=== PATIENT | male | born 1935 | race Two or more races ===

== ENCOUNTER 2017-10-05 17:12 | Inpatient (IN) | payer MEDICARE, OTHER ==
[~2017-10-05] VITALS: Ht 170.2 cm; Wt 53.5 kg
[~2017-10-05 17:12] MED LIST: ARICEPT10 MG ORAL; COLACE250 MG ORAL; CRANBERRY450 M3 PO; FOLIC ACID1 MG ORAL; MOM30 ML ORAL; NAMENDA10 MG ORAL; NIACIN100 GM PO; NIACIN50 MG ORAL; NORVASC10 MG ORAL; OSCAL D500 MG PO; QUETIAPINE FUMA25 MG ORAL; RENA-VITE TABL0.8 M1 PO; SINEMET CR 50/201 EA ORAL; TYLENOL100 MG/11 PO; VIT PO; VITAMIN B-1100 MG ORAL; ZYPREXA5 MG ORAL; ZYPREXA7.5 MG ORAL
[2017-10-05] MEDS ORDERED: NAMENDA5 MG ORAL (17:20)
[2017-10-05 18:21] LABS: APPEARANCE,URINE CLEAR; BASOPHILS % (AUTO) 0.6 % (0.0-2.0); BILIRUBIN, URINE NEGATIVE (NEGATIVE); COLOR,URINE PALE YELLOW; EOSINOPHILS % (AUTO) 1.7 % (0.0-3.0); GLUCOSE, URINE (UA) NEGATIVE (NEGATIVE); HEMATOCRIT 37.7 % (42.0-52.0); HEMOGLOBIN 12.3 G/DL (14.2-18.0); KETONES,URINE NEGATIVE (NEGATIVE); LEUKOCYTE ESTERASE ,URINE NEGATIVE (NEGATIVE); LYMPHOCYTES % (AUTO) 11.9 % (20.0-45.0); MEAN CORPUSCULAR VOLUME 90 FL (80-99); NEUTROPHILS % (AUTO) 80.7 % (45.0-75.0); NITRITE,URINE NEGATIVE (NEGATIVE); PH,URINE 5 (4.5-8.0); PLATELET COUNT 373 K/UL (150-450); PROTEIN,URINE NEGATIVE (NEGATIVE); UROBILINOGEN,URINE NORMAL MG/DL (0.0-1.0)
[2017-10-05 18:24] VITALS: BP 135/72
[2017-10-05 18:36] LABS: ANION GAP 9 mmol/L (5-15); BLOOD UREA NITROGEN 21 mg/dL (7-18); CALCIUM 9.1 MG/DL (8.5-10.1); CARBON DIOXIDE 24 MMOL/L (21-32); CHLORIDE 113 MMOL/L (98-107); CREATININE 2.2 MG/DL (0.55-1.30); POTASSIUM 3.4 MMOL/L (3.5-5.1); SODIUM 146 MMOL/L (136-145)
[2017-10-05 18:48] LABS: ALANINE AMINOTRANSFERASE 11 U/L (12-78); ALBUMIN 2.5 G/DL (3.4-5.0); ALBUMIN/GLOBULIN RATIO 0.6 (1.0-2.7); ALKALINE PHOSPHATASE 83 U/L (46-116); ASPARTATE AMINO TRANSFERASE 13 U/L (15-37); BILIRUBIN,TOTAL 0.3 MG/DL (0.2-1.0)
[2017-10-05 19:35] VITALS: BP 128/69
[2017-10-05 21:40] VITALS: BP 112/58
--- NOTE | 2017-10-06 | Emergency Room Report ---
History of Present Illness General Chief Complaint: General Complaint Source: Medical Record, EMS Present Illness HPI This patient is unsure senior living facility. The patient presents for progressive weight loss and poor oral intake. He has a history of Parkinson's, dementia and failure to thrive. His primary care physician sent him in for admission for possible PEG tube placement. The patient has severe dementia and is unable to give a history. Allergies: Coded Allergies: CHLORPROMAZINE (Unverified Allergy, Unknown, 11/19/13) CHLORPROMAZINE HCL (Verified Allergy, Unknown, 02/12/13) FLUPHENAZINE (Verified Allergy, Unknown, 02/12/13) Patient History Past Medical History: see triage record, other - Parkinsons, FTT, Dementia Social History: Denies: smoking, alcohol use, drug use Reviewed Nursing Documentation: PMH: Agreed, PSxH: Agreed Nursing Documentation-PMH Hx Cardiac Problems: Yes Hx Hypertension: Yes - hyperlipedema Hx COPD: Yes Hx Diabetes: Yes Hx Cancer: Yes - BASAL CELL CA Hx Dialysis: No History Of Psychiatric Problem: Yes - schizo Hx Cerebrovascular Accident: Yes Hx Dementia: Yes Hx Alzheimer's Disease: Yes Hx Parkinson's Disease: Yes Hx Weakness: Yes Review of Systems All Other Systems: negative except mentioned in HPI Physical Exam Vital Signs Date Time Temp Pulse Resp B/P (MAP) Pulse Ox O2 Delivery O2 Flow Rate FiO2 10/05/17 17:07 99.0 82 16 135/72 93 Room Air 99.0 Sp02 EP Interpretation: reviewed, normal General Appearance: no apparent distress, alert, GCS 15, non-toxic Head: normocephalic, atraumatic Eyes: bilateral eye normal inspection, bilateral eye PERRL ENT: hearing grossly normal, normal pharynx, no angioedema, normal voice Neck: full range of motion, supple/symm/no masses Respiratory: chest non-tender, lungs clear, normal breath sounds, no respiratory distress, no retraction, no accessory muscle use, speaking full sentences Cardiovascular #1: regular rate, rhythm, no edema Gastrointestinal: normal bowel sounds, non tender, soft, non-distended, no guarding, no rebound Rectal: deferred Musculoskeletal: back normal, non-tender Neurologic: alert, responsive, motor strength/tone normal, sensory intact Psychiatric: other - agitated Skin: well hydrated Medical Decision Making Diagnostic Impression: Primary Impression: Failure to thrive in adult Additional Impression: Excessive weight loss ER Course This patient presents with failure to thrive progressive weight loss. He has had poor by mouth intake. His history of Parkinson's and dementia. He is admitted for possible PEG tube placement and further evaluation and treatment. Laboratory Tests Test 10/05/17 18:10 White Blood Count 14.0 K/UL (4.8-10.8) H Red Blood Count 4.20 M/UL (4.70-6.10) L Hemoglobin 12.3 G/DL (14.2-18.0) L Hematocrit 37.7 % (42.0-52.0) L Mean Corpuscular Volume 90 FL (80-99) Mean Corpuscular Hemoglobin 29.3 PG (27.0-31.0) Mean Corpuscular Hemoglobin Concent 32.6 G/DL (32.0-36.0) Red Cell Distribution Width 14.0 % (11.6-14.8) Platelet Count 373 K/UL (150-450) Mean Platelet Volume 5.5 FL (6.5-10.1) L Neutrophils (%) (Auto) 80.7 % (45.0-75.0) H Lymphocytes (%) (Auto) 11.9 % (20.0-45.0) L Monocytes (%) (Auto) 5.0 % (1.0-10.0) Eosinophils (%) (Auto) 1.7 % (0.0-3.0) Basophils (%) (Auto) 0.6 % (0.0-2.0) Urine Color Pale yellow Urine Appearance Clear Urine pH 5 (4.5-8.0) Urine Specific [place] 1.015 (1.005-1.035) Urine Protein Negative (NEGATIVE) Urine Glucose (UA) Negative (NEGATIVE) Urine Ketones Negative (NEGATIVE) Urine Occult Blood Negative (NEGATIVE) Urine Nitrite Negative (NEGATIVE) Urine Bilirubin Negative (NEGATIVE) Urine Urobilinogen Normal MG/DL (0.0-1.0) Urine Leukocyte Esterase Negative (NEGATIVE) Sodium Level 146 MMOL/L (136-145) H Potassium Level 3.4 MMOL/L (3.5-5.1) L Chloride Level 113 MMOL/L (98-107) H Carbon Dioxide Level 24 MMOL/L (21-32) Anion Gap 9 mmol/L (5-15) Blood Urea Nitrogen 21 mg/dL (7-18) H Creatinine 2.2 MG/DL (0.55-1.30) H Estimate Glomerular Filtration Rate mL/min (>60) Glucose Level 104 MG/DL (74-106) Calcium Level 9.1 MG/DL (8.5-10.1) Total Bilirubin 0.3 MG/DL (0.2-1.0) Aspartate Amino Transferase (AST) 13 U/L (15-37) L Alanine Aminotransferase (ALT) 11 U/L (12-78) L Alkaline Phosphatase 83 U/L (46-116) Troponin I 0.001 ng/mL (0.000-0.056) Total Protein 6.8 G/DL (6.4-8.2) Albumin 2.5 G/DL (3.4-5.0) L Globulin 4.3 g/dL Albumin/Globulin Ratio 0.6 (1.0-2.7) L Thyroid Stimulating Hormone (TSH) 1.937 uiU/mL (0.358-3.740) Free Thyroxine 1.01 NG/DL (0.76-1.46) EKG Diagnostic Results Rate: normal Rhythm: NSR ST Segments: no acute changes Rhythm Strip Diag. Results EP Interpretation: yes Rate: 90's Rhythm: NSR, no PVC's, no ectopy Last Vital Signs Date Time Temp Pulse Resp B/P (MAP) Pulse Ox O2 Delivery O2 Flow Rate FiO2 10/05/17 18:24 99.0 82 16 135/72 95 Room Air 99.0 Disposition: ADMITTED INPATIENT Condition: Stable Referrals: NON PHYSICIAN (PCP) ELEUTERIO CENTENO D.O. Oct 06, 2017 00:00
[2017-10-06 00:43] VITALS: BP 102/55
[2017-10-06] MEDS: D5 1/2NS 1,000 ML IV SCH ×2 (03:00→15:27)
[2017-10-06 08:00] VITALS: BP 127/69
[2017-10-06] MEDS: Tums 500mg ORAL SCH ×2 (08:44→18:25)
[2017-10-06] MEDS: Thiamine 100mg tab ORAL SCH (08:44)
[2017-10-06] MEDS: Heparin 5000 units/ml inj SUBQ SCH ×2 (08:49→21:37)
[2017-10-06] MEDS ORDERED: Niacin 50mg tab ORAL SCH (09:00)
[2017-10-06 12:00] VITALS: BP 142/80
[2017-10-06] MEDS: Memantine 5 MG TAB ORAL SCH ×2 (14:45→21:33)
[2017-10-06] MEDS: Niacin 50mg tab ORAL SCH (14:45)
--- NOTE | 2017-10-06 15:00 | History and Physical Report ---
DATE OF ADMISSION: 10/05/2017 CHIEF COMPLAINT: Failure to thrive, weight loss, and acute renal failure HISTORY OF PRESENT ILLNESS: The patient is an 82-year-old male. He has a history of bipolar disorder, dementia, coronary artery disease, GERD, diabetes, schizophrenia, hypertensive heart disease, and COPD. He was transferred from a group home facility with complaints of progressive weight loss and failure to thrive. According to staff at the group home facility, the patient has lost approximately 8 pounds over the last week. His p.o. intake has been labile but has been mostly poor. He has also apparently been pocketing food, having some difficulty with swallowing. On evaluation in the emergency room, the patient was noted to have a white count 14,000. His urinalysis is unremarkable. He had an elevated sodium, decreased potassium level, and creatinine of 2. In the light of the patient's failure to thrive, he is now admitted for further evaluation and care. PAST MEDICAL HISTORY: As above. PAST SURGICAL HISTORY: None. CURRENT MEDICATIONS: Reconciled and reviewed. ALLERGIES: Include chlorpromazine and fluphenazine. FAMILY HISTORY: Noncontributory. SOCIAL HISTORY: There is no known history of tobacco, ethanol, or drugs. REVIEW OF SYSTEMS: From the patient is unobtainable as the patient is currently agitated and combative. PHYSICAL EXAMINATION: VITAL SIGNS: Temperature 98.6, pulse 74, respirations 18, and blood pressure 127/69. GENERAL: The patient is well-developed male, in no apparent distress. He is somewhat agitated. NECK: Supple. HEART: Regular rate and rhythm. LUNGS: Clear. ABDOMEN: Soft. EXTREMITIES: Without clubbing or cyanosis. The patient moves all four extremities. LABORATORY DATA: Showed sodium 146, potassium 3.4. White count was 14,000. ASSESSMENT: This is a pleasant male admitted with complaints of failure to thrive and weight loss: 1. Failure to thrive and weight loss. 2. Possible acute renal failure. 3. Dehydration. 4. Hypernatremia. 5. Hypokalemia. 6. History of obesity. 7. Anemia. 8. History of coronary artery disease. 9. History of stable angina. 10. GERD. 11. Schizophrenia. 12. Hypertension. 13. COPD. 14. Diabetes. 15. Parkinson's disease. 16. History of bradycardia. PLAN: IV hydration. Check swallow evaluation. CT scan of the chest, abdomen, and pelvis without contrast. We will check tumor markers. We will monitor the patient's p.o. intake closely. Chaim Mcdaniels M.D. DR: RAGHU JOB#: [id number] CC:
[2017-10-06 16:00] VITALS: BP 114/64
[2017-10-06 20:00] VITALS: BP 120/69
[2017-10-06] MEDS: Donepezil 10mg tab ORAL SCH (21:33)
[2017-10-07 04:00] VITALS: BP 139/80
[2017-10-07] MEDS: D5 1/2NS 1,000 ML IV SCH ×2 (04:47→17:47)
--- NOTE | 2017-10-07 08:20 | General Progress Note ---
Assessment/Plan Problem List: (1) Dehydration ICD Codes: E86.0 - Dehydration SNOMED: 23013853 (2) Toxic metabolic encephalopathy ICD Codes: G92 - Toxic encephalopathy SNOMED: 858593988 (3) Failure to thrive in adult ICD Codes: R62.7 - Adult failure to thrive SNOMED: 396168848 (4) Excessive weight loss ICD Codes: R63.4 - Abnormal weight loss SNOMED: 442428670 Status: stable, progressing Assessment/Plan ct chest abd pelvix check tumor markers tfts, a1c monitor po intake ivf Subjective ROS Limited/Unobtainable: No Constitutional: Reports: malaise, weakness HEENT: Reports: no symptoms Cardiovascular: Reports: no symptoms Respiratory: Reports: no symptoms Gastrointestinal/Abdominal: Reports: no symptoms Genitourinary: Reports: no symptoms Neurologic/Psychiatric: Reports: anxiety, pre-existing deficit Endocrine: Reports: no symptoms Hematologic/Lymphatic: Reports: no symptoms Allergies: Coded Allergies: CHLORPROMAZINE (Unverified Allergy, Unknown, 11/19/13) CHLORPROMAZINE HCL (Verified Allergy, Unknown, 02/12/13) FLUPHENAZINE (Verified Allergy, Unknown, 02/12/13) All Systems: reviewed and negative except above Subjective eating well. 100% documented. less agitated. Objective Last 24 Hour Vital Signs Date Time Temp Pulse Resp B/P (MAP) Pulse Ox O2 Delivery O2 Flow Rate FiO2 10/07/17 04:00 97.0 87 19 139/80 98 97.0 10/06/17 20:00 97.9 95 18 120/69 96 97.9 10/06/17 16:00 98.7 68 18 114/64 100 Room Air 98.7 10/06/17 12:00 98.7 76 18 142/80 98 Room Air 98.7 10/06/17 08:44 74 127/69 Intake and Output 10/06/17 10/07/17 19:00 07:00 Intake Total 1350 ml 1185 ml Balance 1350 ml 1185 ml Intake Oral 600 ml 360 ml IV Total 750 ml 825 ml # Voids 2 4 Height (Feet): 5 Height (Inches): 7.00 Weight (Pounds): 118 General Appearance: WD/WN, alert Neck: supple Cardiovascular: regular rhythm Respiratory/Chest: chest wall non-tender, lungs clear, normal breath sounds, no respiratory distress Abdomen: normal bowel sounds, non tender, soft, no organomegaly Edema: no edema noted Arm (L), no edema noted Arm (R), no edema noted Leg (L), no edema noted Leg (R), no edema noted Pedal (L), no edema noted Pedal (R), no edema noted 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
[2017-10-07 09:00] VITALS: BP 130/76
[2017-10-07] MEDS: Thiamine 100mg tab ORAL SCH (09:24)
[2017-10-07] MEDS: Tums 500mg ORAL SCH ×2 (09:24→17:46)
[2017-10-07] MEDS: Memantine 5 MG TAB ORAL SCH ×2 (09:24→17:46)
[2017-10-07] MEDS: Heparin 5000 units/ml inj SUBQ SCH ×2 (09:25→20:32)
[2017-10-07 10:22] LABS: ALANINE AMINOTRANSFERASE 9 U/L (12-78); ALBUMIN/GLOBULIN RATIO 0.5 (1.0-2.7); ALKALINE PHOSPHATASE 70 U/L (46-116); ANION GAP 6 mmol/L (5-15); ASPARTATE AMINO TRANSFERASE 10 U/L (15-37); BILIRUBIN,TOTAL 0.3 MG/DL (0.2-1.0); BLOOD UREA NITROGEN 18 mg/dL (7-18); CALCIUM 8.7 MG/DL (8.5-10.1); CARBON DIOXIDE 25 MMOL/L (21-32); CHLORIDE 112 MMOL/L (98-107); POTASSIUM 3.8 MMOL/L (3.5-5.1); SODIUM 143 MMOL/L (136-145)
[2017-10-07] MEDS: Niacin 50mg tab ORAL SCH (11:44)
[2017-10-07 11:47] VITALS: BP 139/61
[2017-10-07 20:00] VITALS: BP 129/73
[2017-10-07] MEDS: Donepezil 10mg tab ORAL SCH (20:32)
[2017-10-07 23:57] VITALS: BP 125/81
[2017-10-08 04:00] VITALS: BP 122/68
[2017-10-08] MEDS: D5 1/2NS 1,000 ML IV SCH ×2 (06:14→19:19)
[2017-10-08 08:00] VITALS: BP 118/69
[2017-10-08] MEDS: Tums 500mg ORAL SCH ×2 (08:24→17:47)
[2017-10-08] MEDS: Memantine 5 MG TAB ORAL SCH ×2 (08:24→17:47)
[2017-10-08] MEDS: Niacin 50mg tab ORAL SCH (08:24)
[2017-10-08] MEDS: Heparin 5000 units/ml inj SUBQ SCH ×3 (08:25→21:25)
[2017-10-08] MEDS: Thiamine 100mg tab ORAL SCH (08:27)
--- NOTE | 2017-10-08 08:37 | General Progress Note ---
Assessment/Plan Problem List: (1) Dehydration ICD Codes: E86.0 - Dehydration SNOMED: 40052311 (2) Toxic metabolic encephalopathy ICD Codes: G92 - Toxic encephalopathy SNOMED: 257605512 (3) Failure to thrive in adult ICD Codes: R62.7 - Adult failure to thrive SNOMED: 709560651 (4) Excessive weight loss ICD Codes: R63.4 - Abnormal weight loss SNOMED: 612939405 Status: stable, progressing Assessment/Plan await ct chest abd pelvis check tumor markers tfts, a1c monitor po intake ivf dc planning if above negative and po intake good Subjective ROS Limited/Unobtainable: Yes Constitutional: Reports: malaise, weakness HEENT: Reports: no symptoms Cardiovascular: Reports: no symptoms Respiratory: Reports: no symptoms Gastrointestinal/Abdominal: Reports: no symptoms Genitourinary: Reports: no symptoms Neurologic/Psychiatric: Reports: anxiety, pre-existing deficit Endocrine: Reports: no symptoms Hematologic/Lymphatic: Reports: no symptoms Allergies: Coded Allergies: CHLORPROMAZINE (Unverified Allergy, Unknown, 11/19/13) CHLORPROMAZINE HCL (Verified Allergy, Unknown, 02/12/13) FLUPHENAZINE (Verified Allergy, Unknown, 02/12/13) All Systems: reviewed and negative except above Subjective eating well. 100% documented. less agitated. Objective Last 24 Hour Vital Signs Date Time Temp Pulse Resp B/P (MAP) Pulse Ox O2 Delivery O2 Flow Rate FiO2 10/08/17 08:24 70 118/69 10/08/17 08:00 97.7 70 20 118/69 98 97.7 10/08/17 04:00 97.3 67 21 122/68 100 97.3 10/07/17 23:57 97.7 76 20 125/81 100 97.7 10/07/17 20:00 98.9 83 21 129/73 100 98.9 10/07/17 11:47 99.4 85 18 139/61 99 99.4 10/07/17 11:44 Room Air 10/07/17 09:19 76 130/76 10/07/17 09:00 97.5 76 18 130/76 99 97.5 Intake and Output 10/07/17 10/08/17 19:00 07:00 Intake Total 990 ml 825 ml Balance 990 ml 825 ml Intake Oral 240 ml IV Total 750 ml 825 ml # Voids 3 4 # Bowel Movements 1 Laboratory Tests 10/07/17 09:10: Sodium Level 143, Potassium Level 3.8, Chloride Level 112H, Carbon Dioxide Level 25, Anion Gap 6, Blood Urea Nitrogen 18, Creatinine 2.0H, Estimat Glomerular Filtration Rate , Glucose Level 121H, Hemoglobin A1c 6.0, Calcium Level 8.7, Total Bilirubin 0.3, Aspartate Amino Transf (AST/SGOT) 10L, Alanine Aminotransferase (ALT/SGPT) 9L, Alkaline Phosphatase 70, Total Protein 5.8L, Albumin 2.0L, Globulin 3.8, Albumin/Globulin Ratio 0.5L Height (Feet): 5 Height (Inches): 7.00 Weight (Pounds): 118 KATHRYN GARRIOD Oct 08, 2017 08:37
[2017-10-08 12:04] VITALS: BP 120/61
--- NOTE | 2017-10-08 16:09 | Cardiology Report ---
APPROVED REPORT EKG Measurement Heart [id number] Sinus rhythm with fusion complexes Right bundle branch block Abnormal ECG
[2017-10-08] MEDS ORDERED: D5 1/2NS 1000ml IV ONE (16:58)
[2017-10-08 20:00] VITALS: BP 127/69
[2017-10-08] MEDS: Donepezil 10mg tab ORAL SCH (21:24)
[2017-10-09 00:02] VITALS: BP 145/69
[2017-10-09 04:33] VITALS: BP 112/58
--- NOTE | 2017-10-09 07:58 | General Progress Note ---
Assessment/Plan Problem List: (1) Dehydration ICD Codes: E86.0 - Dehydration SNOMED: 40883373 (2) Toxic metabolic encephalopathy ICD Codes: G92 - Toxic encephalopathy SNOMED: 945798828 (3) Failure to thrive in adult ICD Codes: R62.7 - Adult failure to thrive SNOMED: 981794412 (4) Excessive weight loss ICD Codes: R63.4 - Abnormal weight loss SNOMED: 773105376 Status: stable, progressing Assessment/Plan await ct chest abd pelvis check tumor markers tfts, a1c monitor po intake ivf dc planning if ct negative and po intake good Subjective ROS Limited/Unobtainable: No Constitutional: Reports: malaise, weakness HEENT: Reports: no symptoms Cardiovascular: Reports: no symptoms Respiratory: Reports: no symptoms Gastrointestinal/Abdominal: Reports: no symptoms Genitourinary: Reports: no symptoms Neurologic/Psychiatric: Reports: no symptoms Endocrine: Reports: no symptoms Hematologic/Lymphatic: Reports: no symptoms Allergies: Coded Allergies: CHLORPROMAZINE (Unverified Allergy, Unknown, 11/19/13) CHLORPROMAZINE HCL (Verified Allergy, Unknown, 02/12/13) FLUPHENAZINE (Verified Allergy, Unknown, 02/12/13) All Systems: reviewed and negative except above Subjective eating well. 100% documented. less agitated. on ivf. Objective Last 24 Hour Vital Signs Date Time Temp Pulse Resp B/P (MAP) Pulse Ox O2 Delivery O2 Flow Rate FiO2 10/09/17 04:33 97.2 79 20 112/58 97 Room Air 97.2 10/09/17 00:02 98.5 86 20 145/69 94 Room Air 98.5 10/08/17 20:00 98.1 70 20 127/69 98 Room Air 98.1 10/08/17 12:04 97.8 72 18 120/61 97 97.8 10/08/17 08:24 70 118/69 10/08/17 08:00 97.7 70 20 118/69 98 97.7 Intake and Output 10/08/17 10/09/17 19:00 07:00 Intake Total 1380 ml 825 ml Balance 1380 ml 825 ml Intake Oral 480 ml IV Total 900 ml 825 ml # Voids 5 3 # Bowel Movements 1 Height (Feet): 5 Height (Inches): 7.00 Weight (Pounds): 118 KATHRYN GARRIDO Oct 09, 2017 07:58
[2017-10-09 08:00] VITALS: BP 140/68
[2017-10-09 08:29] LABS: BASOPHILS % (AUTO) 0.5 % (0.0-2.0); EOSINOPHILS % (AUTO) 2.5 % (0.0-3.0); HEMATOCRIT 29.3 % (42.0-52.0); HEMOGLOBIN 9.7 G/DL (14.2-18.0); LYMPHOCYTES % (AUTO) 21.5 % (20.0-45.0); MEAN CORPUSCULAR VOLUME 89 FL (80-99); MONOCYTES % (AUTO) 5.5 % (1.0-10.0); NEUTROPHILS % (AUTO) 70.1 % (45.0-75.0); PLATELET COUNT 250 K/UL (150-450); RED BLOOD COUNT 3.29 M/UL (4.70-6.10); RED CELL DISTRIBUTION WIDTH 13.7 % (11.6-14.8); WHITE BLOOD COUNT 8.8 K/UL (4.8-10.8)
[2017-10-09 08:47] LABS: ALANINE AMINOTRANSFERASE 8 U/L (12-78); ALBUMIN/GLOBULIN RATIO 0.6 (1.0-2.7); ALKALINE PHOSPHATASE 62 U/L (46-116); ANION GAP 6 mmol/L (5-15); ASPARTATE AMINO TRANSFERASE 11 U/L (15-37); BILIRUBIN,TOTAL 0.3 MG/DL (0.2-1.0); BLOOD UREA NITROGEN 13 mg/dL (7-18); CALCIUM 8.6 MG/DL (8.5-10.1); CARBON DIOXIDE 22 MMOL/L (21-32); CHLORIDE 116 MMOL/L (98-107); CREATININE 1.9 MG/DL (0.55-1.30); POTASSIUM 4.2 MMOL/L (3.5-5.1); SODIUM 144 MMOL/L (136-145)
[2017-10-09] MEDS: Niacin 50mg tab ORAL SCH (09:00)
[2017-10-09] MEDS: Thiamine 100mg tab ORAL SCH (09:00)
[2017-10-09] MEDS: Memantine 5 MG TAB ORAL SCH ×2 (09:00→17:27)
[2017-10-09] MEDS: Heparin 5000 units/ml inj SUBQ SCH ×2 (09:00→20:44)
[2017-10-09] MEDS: Tums 500mg ORAL SCH ×2 (09:00→17:27)
[2017-10-09] MEDS: D5 1/2NS 1,000 ML IV SCH (09:54)
[2017-10-09 12:00] VITALS: BP 139/76
[2017-10-09 16:00] VITALS: BP 134/98
--- NOTE | 2017-10-09 16:52 | Diagnostic Imaging Report ---
Clinical Indication: Chest pain, progressive weight loss, poor oral intake Technique: Spiral acquisitions obtained through the chest. No IV contrast utilized, . Multiplanar reconstructions generated. Total dose length product 972.82 mGycm. CTDIvol(s) 14.96,10.48 mGy, inclusive of abdomen and pelvis CT performed of the same time, reported separately. Dose reduction achieved using automated exposure control Comparison: none Findings: There is consolidation and volume loss of portions of the left lower lobe, particularly in the infrahilar region. There is a small left pleural effusion. The left upper lobe is clear. Patchy and reticular opacity is seen in the posterior superior segment of the right lower lobe. Minimal linear opacities and bronchial wall thickening are seen at the base of the right lower lobe. The remainder of the lungs are clear. No effusion seen on the right. The heart size is normal. There is minimal anterior pericardial thickening. No mediastinal or hilar mass or adenopathy. There is a small sliding-type hiatal hernia and mild wall thickening of the distal esophagus. The included portions of the thyroid are unremarkable. No axillary or chest wall mass or adenopathy. The bones demonstrate degenerative spondylosis changes. Impression: Opacities at the base of the left lower lobe, may reflect chronic scarring with volume loss, acute atelectasis, or acute consolidation, or combination of the above. Small left pleural effusion Scattered right lung opacities, acuity indeterminate but suspect mostly on the basis of chronic scarring. Small sliding-type hiatal hernia. Mild wall thickening the distal esophagus could indicate esophagitis changes Mild degenerative thoracic spondylosis The CT scanner at [facility] is accredited by the [employer] and the scans are performed using protocols designed to limit radiation exposure to as low as reasonably achievable to attain images of sufficient resolution adequate for diagnostic evaluation.
--- NOTE | 2017-10-09 17:30 | Diagnostic Imaging Report ---
Indication: Abdominal pain Technique: Spiral acquisitions obtained through the abdomen and pelvis. Patient ingested oral contrast No IV contrast utilized, per referring physician request.. Multiplanar reconstructions were generated. Total dose length product 972.82 mGycm. CTDIvol(s) 14.96,10.48 mGy. Dose reduction achieved using automated exposure control Comparison: 12/31/2004 Findings: The rectum is mildly distended by stool. There is equivocal mild rectal wall thickening and slight infiltration of the perirectal fat. There is distal colonic diverticulosis. No evidence of diverticulitis. The appendix is not definitely identified, but no findings to suggest acute appendicitis are evident. No small bowel distention. Contrast is seen all the way through the small bowel and into the colon as far as the and proximal sigmoid. No small bowel wall thickening. No free or loculated intraperitoneal air or fluid is evident. The lack of IV contrast limits assessment of the solid organs. The liver, gallbladder, bile ducts, pancreas, spleen, adrenals are unremarkable. The left kidney demonstrates an upper pole exophytic hyperattenuating lesion which is too small to characterize. Another low-attenuation lesions in the left kidney are also too small to characterize. The right kidney demonstrates multiple cysts as well as subcentimeter low-attenuation lesions and one upper pole hyperattenuating lesion which are too small to characterize. No hydronephrosis, renal ureteral calculi. No retroperitoneal or mesenteric mass or adenopathy. No pelvic mass or adenopathy. Possible small posterior bladder diverticulum on the right. The prostate is prominent. There are mild degenerative changes of the lumbar spine. Impression: Evidence of rectal fecal impaction. Equivocal mild rectal wall thickening and slight infiltration of the perirectal fat could indicate stercoral proctitis Diverticulosis. No evidence of diverticulitis Right renal cysts. Bilateral renal lesions are too small to characterize, most likely benign simple cysts. No further follow-up necessary Possible small posterior bladder diverticulum, if real, could indicate chronic bladder outlet obstruction. Note prominent prostate Mild degenerative lumbar spondylosis The CT scanner at [facility] is accredited by the [employer] and the scans are performed using protocols designed to limit radiation exposure to as low as reasonably achievable to attain images of sufficient resolution adequate for diagnostic evaluation.
[2017-10-09 20:00] VITALS: BP 128/74
[2017-10-09] MEDS: Donepezil 10mg tab ORAL SCH (20:32)
[2017-10-10] VITALS: BP 156/79
[2017-10-10] MEDS: D5 1/2NS 1,000 ML IV SCH
[2017-10-10 04:00] VITALS: BP 140/79
[2017-10-10] MEDS ORDERED: MIRALAX17 G2 ORAL (08:08)
[2017-10-10] MEDS ORDERED: COLACE250 MG ORAL (08:08)
[2017-10-10] MEDS ORDERED: Miralax 17gm pkt ORAL PRN (08:15)
[2017-10-10] MEDS: Niacin 50mg tab ORAL SCH (08:19)
[2017-10-10 08:20] VITALS: BP 136/80
[2017-10-10] MEDS: Memantine 5 MG TAB ORAL SCH (08:20)
[2017-10-10] MEDS: Tums 500mg ORAL SCH (08:21)
[2017-10-10] MEDS: Thiamine 100mg tab ORAL SCH (08:21)
[2017-10-10] MEDS: Heparin 5000 units/ml inj SUBQ SCH (08:37)
[2017-10-10] MEDS ORDERED: Docusate 250mg cap ORAL SCH (09:00)
[2017-10-10] MEDS ORDERED: D5 1/2NS 1000ml IV ONE (13:28)
--- NOTE | 2017-10-11 01:15 | Discharge Summary ---
DATE OF ADMISSION: 10/05/2017 DATE OF DISCHARGE: 10/10/2017 ADMISSION DIAGNOSES: 1. Failure to thrive. 2. Dehydration. 3. Acute renal failure. 4. Encephalopathy. DISCHARGE DIAGNOSES: 1. Failure to thrive. 2. Dehydration. 3. Acute renal failure. 4. Encephalopathy. HOSPITAL COURSE: The patient is an unfortunate male, who was admitted with complaints of progressive weight loss and failure to thrive. He was noted to be in acute renal failure and started on hydration. He had a CAT scan of the chest and abdomen that showed only in the lungs as well as a fecal impaction. Tumor markers were negative at the hospital and at the hospital the patient ate very well nearly 100%. On discharge, he was stable. [facility] facility. His weight and intake will be monitored there closely. If he continues to lose weight, we will consider a colonoscopy, but because the patient's agitated and combative behavior, he is a poor candidate. DISCHARGE MEDICATIONS: Please see discharge list discharge medications. DIET: Regular. ACTIVITY: Ad-kirstin. FOLLOWUP: The patient to follow by his PMD at the [facility] facility. Chaim Mcdaniels M.D. DR: JOAQUÍN JOB#: [id number] CC:
== END 2017-10-10 13:29 | DRG 682 ==
LOC: EDBD 17:12 → EMR 17:51 → EDBEDREQ 22:40 → 4W 22:59 → EDBEDREQ 23:15 → 4E 10-07 11:59
DX: N17.9 Acute kidney failure, unspecified (principal); G92 Toxic encephalopathy; E87.0 Hyperosmolality and hypernatremia; F02.81 Dementia in other diseases classified elsewhere, unspecified severity, with behavioral disturbance; G20 Parkinson's disease; D64.9 Anemia, unspecified; E11.9 Type 2 diabetes mellitus without complications; I10 Essential (primary) hypertension; Z68.1 Body mass index [BMI] 19.9 or less, adult; R62.7 Adult failure to thrive; E86.0 Dehydration; R63.4 Abnormal weight loss; E87.6 Hypokalemia; K21.9 Gastro-esophageal reflux disease without esophagitis; F20.9 Schizophrenia, unspecified; Z88.8 Allergy status to other drugs, medicaments and biological substances; F31.9 Bipolar disorder, unspecified; I25.118 Atherosclerotic heart disease of native coronary artery with other forms of angina pectoris
CPT/HCPCS: 36415; 71250; 74176; 80053; 81003; 82378; 83036; 84439; 84443; 84484; 85025; 87081; 93005; 99285